=== PATIENT | female | born 1950 | race Caucasian/White ===

== ENCOUNTER → 2018-06-16 | Outpatient (CLI) | payer OTHER, MEDICARE ==
[~2018-06-16] MED LIST: ANUCORT HC25 MG R; DELTASONE20 MG; FLEXERIL10 MG PO; K-Dur 20MEQ20 MEQ PO; KEFLEX500 MG PO; LASIX40 MG PO; LIPITOR80 MG PO; MIRALAX POWDER17 G1 PO; MOTRIN800 MG PO; PREDNISONE20 MG PO; PREPARATION H R; PROVENTIL0.09 MG/A1 IH; SINGULAIR10 MG PO; SPIRIVA -- 3018 MCG INH; SYMBICORT1 AE1 IH; ZOVIRAX400 MG PO
== END | disposition home or self-care (01) ==
LOC: US 12:02
DX: I70.201 Unspecified atherosclerosis of native arteries of extremities, right leg (principal); J44.9 Chronic obstructive pulmonary disease, unspecified; M79.605 Pain in left leg; Z87.891 Personal history of nicotine dependence